=== PATIENT | female | born 1935 | race Caucasian/White ===

== ENCOUNTER 2021-08-01 01:37 | Inpatient (IN) | payer OTHER ==
[~2021-08-01] VITALS: Ht 154.9 cm; Wt 49.4 kg
[2021-08-01 01:44] VITALS: BP 197/113
--- NOTE | 2021-08-01 01:44 | NUR ---
Patient placed on bed 2.
--- NOTE | 2021-08-01 01:45 | NUR ---
Dr. Matson at bedside to exam patient.
[2021-08-01] MEDS ORDERED: ACETAMINOPHEN EXTRA STRENGTH 500 MG TAB PO ONE (01:50)
--- NOTE | 2021-08-01 01:59 | NUR ---
PATIENT TO XR VIA GURNEY
--- NOTE | 2021-08-01 01:59 | NUR ---
Patient taken to radiology dept via [place].
[2021-08-01] MEDS ORDERED: PRED15SY33 PO (02:14)
[2021-08-01] MEDS ORDERED: CLON1TAB PO (02:14)
[2021-08-01] MEDS ORDERED: ACET-6951 PO (02:14)
[2021-08-01] MEDS ORDERED: IBUP-1842 PO (02:14)
[2021-08-01] MEDS ORDERED: BISA-213 RC (02:14)
[2021-08-01] MEDS ORDERED: LORA-476 PO (02:14)
[2021-08-01] MEDS ORDERED: MECL-416 PO (02:14)
[2021-08-01] MEDS ORDERED: BENA20TA PO (02:14)
[2021-08-01] MEDS ORDERED: ATOR40TA PO (02:14)
--- NOTE | 2021-08-01 02:15 | NUR ---
Medication Reconciliation done.
--- NOTE | 2021-08-01 02:31 | NUR ---
Patient reported, pain left upper thigh, pain rate 11/25, Dr. Matson notified.
[2021-08-01] MEDS ORDERED: NACL 0.9% 1,000 ML IV ONE (02:35)
[2021-08-01] MEDS ORDERED: ONDANSETRON 4 MG/2 ML VIAL IVP ONE (02:35)
[2021-08-01] MEDS ORDERED: MORPHINE SULFATE 4 MG/ML SYR IVP ONE (02:35)
[2021-08-01] MEDS ORDERED: MORPHINE SULFATE 4 MG/ML SYR IVP PRN (02:45)
--- NOTE | 2021-08-01 02:50 | NUR ---
Order 2 mg of Morphine and wasted 2 mg of Morphine with AD Fregoso.
--- NOTE | 2021-08-01 02:55 | NUR ---
covid-19 swabs collected and sent to lab.
[2021-08-01 03:00] LABS: BASOPHILS % (AUTO) 0.5 % (0.0-2.0); EOSINOPHILS % (AUTO) 0.2 % (0.0-4.0); HEMATOCRIT 39.8 % (36-48); HEMOGLOBIN 13.2 g/dL (12.0-16.0); LYMPHOCYTES % (AUTO) 13.5 % (20.5-51.1); MEAN CORPUSCULAR HEMOGLOBIN 30 pg (27-31); MEAN CORPUSCULAR HGB CONC 33 g/dL (33-37); MEAN CORPUSCULAR VOLUME 91.6 fL (80-94); MONOCYTES # (AUTO) 0.4 K/uL (0.8-1.0); MONOCYTES % (AUTO) 5.3 % (1.7-9.3); NEUTROPHILS # (AUTO) 6.2 K/uL (1.8-7.7); NEUTROPHILS % (AUTO) 80.5 % (42.2-75.2); PLATELET COUNT (AUTO) 268 K/uL (140-450); RED BLOOD CELL COUNT(AUTO) 4.34 MIL/uL (4.20-5.40); RED CELL DISTRIBUTION WIDTH 15.1 % (11.6-13.7); WHITE BLOOD COUNT (AUTO) 7.7 K/uL (4.8-10.8)
[2021-08-01 03:34] LABS: PROTHROMBIN TIME 9.4 secs (10.8-13.4)
[2021-08-01] MEDS: NACL 0.9% 1,000 ML IV SCH ×2 (03:41→15:15)
[2021-08-01 03:44] LABS: ALBUMIN 3.4 g/dL (3.4-5.0); ASPARTATE AMINOTRANSFERASE 19 U/L (15-37); CARBON DIOXIDE 23.2 mmol/L (21-32); CREATININE 0.9 mg/dL (0.6-1.3); GLUCOSE 142 mg/dL (74-106); TOTAL BILIRUBIN 0.3 mg/dL (0.0-1.0); UREA NITROGEN, BLOOD 20 mg/dL (7-18)
[2021-08-01 03:47] LABS: ANION GAP 13.7 (8-16); CHLORIDE 105 mmol/L (98-107); POTASSIUM 3.9 mmol/L (3.5-5.1); SODIUM SERUM 138 mmol/L (136-145)
--- NOTE | 2021-08-01 04:00 | NUR ---
Patient will be admitted to care of Costa DELACRUZ. Admited to Med/Surg. Will go to room 123A. Belongings list completed. Report to Amina DUONG.
[2021-08-01 04:10] VITALS: BP 108/71
--- NOTE | 2021-08-01 04:10 | NUR ---
PATIENT ARRIVED TO FLOOR VIA GURNEY. PT TX TO BED WITH ASSISTANCE OF 2 NURSES PT TOLERATED WELL. PT IS AAOX4. RESPIRATIONS ARE EQUAL AND UNLABORED ON ROOM AIR. LUNG SOUNDS ARE CLEAR. ABD IS ROUND SOFT LBM YESTERDAY. IV ON LAC 20G WILL CONNECT TO IVF. SKIN IS WARM DRY AND INTACT. C/C S/P FALL PER PT, "I LEAN TO GET MY WALKER AND FELL DOWN." PT DENIES LOSS CONSCIOUS. DX L FEMUR FX. MRSA SWAB OBTAINED AND SENT TO LAB. ORIENTED PT TO ROOM, STAFF, CALL LIGHT. CAP REFILL < 3 SEC NO SWELLING NOTED. WIGGLED TOES. PT RATED PAIN 10/10 UNABLE TO COMPLETE ASSESSMENT. WILL MEDICATE. POC REVIEWED WITH PT. CALL LIGHT IS WITHIN REACH. WILL CONTINUE TO MONITOR.
--- NOTE | 2021-08-01 04:20 | NUR ---
C/C L LEG PAIN 10/10 PRN MORPHINE GIVEN. WILL CONTINUE TO MONITOR.
[2021-08-01] MEDS ORDERED: ACETAMINOPHEN 325 MG TAB PO PRN ×2 (05:45→06:50)
--- NOTE | 2021-08-01 06:00 | NUR ---
SPOKE WITH PATIENT'S SON LAURA UPDATE GIVEN. ALL QUESTIONS AND CONCERN WERE ANSWERED.
[2021-08-01] MEDS ORDERED: MAG SULF 2000 MG/WATER PREMIX 50 ML IV PRN (06:50)
[2021-08-01] MEDS ORDERED: DOCUSATE SODIUM 100 MG GELCAP PO PRN (06:50)
[2021-08-01] MEDS ORDERED: ONDANSETRON 4 MG/2 ML VIAL IVP PRN (06:50)
[2021-08-01] MEDS ORDERED: LORazepam 2 MG/ML VIAL IVP PRN (06:50)
[2021-08-01] MEDS ORDERED: ZOLPIDEM 10 MG TAB PO PRN (06:50)
[2021-08-01] MEDS ORDERED: POTASSIUM CHLORIDE 10 MEQ TABER PO PRN (06:50)
--- NOTE | 2021-08-01 06:50 | NUR ---
PATIENT HAS BEEN SCREENED AND CATEGORIZED LOW NUTRITION RISK. PATIENT WILL BE SEEN WITHIN 7 DAYS OF ADMISSION. 08/08/21 JAMES MCKEON MS, RDN
--- NOTE | 2021-08-01 07:30 | NUR ---
RECEIVED REPORT FROM VICE PRESIDENT NETWORK NURSE FOR CONTINUITY OF CARE. PT AWAKE IN BED. BREATHING SYMMETRICAL ON ROOM AIR. PT JUST GIVEN MORPHINE, PENDING CONSULT WITH ORTHO. LAC 20G RUNNING NS AT 80CC/HR. ALL SAFETY MEASURES IN PLACE.
[2021-08-01] MEDS: MORPHINE SULFATE 2 MG/ML SYR IVP PRN (07:33)
--- NOTE | 2021-08-01 07:34 | NUR ---
GAVE BEDSIDE REPORT TO DAY RN. PT ENDORSED IN STABLE CONDITION.
[2021-08-01 08:00] VITALS: BP 129/56
[2021-08-01] MEDS: prednisoLONE 15 MG/5 ML UDC PO SCH (09:54)
[2021-08-01] MEDS: BENAZEPRIL 20 MG TAB PO SCH (09:54)
--- NOTE | 2021-08-01 10:00 | NUR ---
SCHEDULED AM MEDICATIONS GIVEN ORDERED.
[2021-08-01] MEDS: traMADol 50 MG TAB PO SCH ×2 (10:40→21:03)
--- NOTE | 2021-08-01 13:45 | NUR ---
PT C/O PAIN LEFT LEG PAIN REFUSES MORPHINE, OFFERED TYLENOL INSTEAD. PT TAKEN TO RADIOLOGY FOR CT OF LEFT FEMUR WITHOUT CONTRAST
--- NOTE | 2021-08-01 14:05 | NUR ---
PT BACK FROM RADIOLOGY
[2021-08-01 16:00] VITALS: BP 97/40
--- NOTE | 2021-08-01 16:01 | NUR ---
RECEIVED CALL FROM LAB REGARDING TROPONIN LEVEL HIGH 55, LEFT MESSAGE TO DR SINGER AND DR MAYER, CONSULTING CARDIO
--- NOTE | 2021-08-01 16:06 | NUR ---
RECEIVED ORDER FROM DR MAYER TO REPEAT TROPONIN 3 HRS FROM LAST DRAWN.
--- NOTE | 2021-08-01 17:15 | NUR ---
PT GETTING ECHOCARDIOGRAM AT THIS TIME
--- NOTE | 2021-08-01 19:05 | NUR ---
ENDORSED PT TO DIAL PAINTER NURSE. NO CHANGE IN PT'S CONDITION
--- NOTE | 2021-08-01 19:35 | NUR ---
RECEIVED PT FROM AM NURSE FOR CONTINUITY OF CARE.PT IS STABLE.
[2021-08-01] MEDS: clonazePAM 0.5 MG TAB PO SCH (20:58)
[2021-08-01] MEDS: ATORVASTATIN 20 MG TAB PO SCH (21:03)
--- NOTE | 2021-08-01 21:30 | NUR ---
ALL MEDS GIVEN,TOLERATED WELL,NO DISTRESS NOTED.
[2021-08-02] VITALS: BP 106/55
--- NOTE | 2021-08-02 02:00 | NUR ---
PATIENT SLEEPING,BREATHING EVEN AND UNLABORED,NO DISTRESS NOTED
[2021-08-02] MEDS: NACL 0.9% 1,000 ML IV SCH ×2 (05:00→16:15)
--- NOTE | 2021-08-02 06:04 | NUR ---
CHANGED AND REPOSITIONED PT ,NO DISTRESS NOTED
[2021-08-02 06:20] LABS: BASOPHILS # (AUTO) 0.1 K/uL (0.00-0.22); BASOPHILS % (AUTO) 0.8 % (0.0-2.0); EOSINOPHILS # (AUTO) 0.1 K/uL (0-0.4); EOSINOPHILS % (AUTO) 1.7 % (0.0-4.0); HEMATOCRIT 28.4 % (36-48); HEMOGLOBIN 9.3 g/dL (12.0-16.0); LYMPHOCYTES % (AUTO) 27.4 % (20.5-51.1); MEAN CORPUSCULAR HEMOGLOBIN 31 pg (27-31); MEAN CORPUSCULAR HGB CONC 33 g/dL (33-37); MEAN CORPUSCULAR VOLUME 92.9 fL (80-94); MONOCYTES # (AUTO) 0.6 K/uL (0.8-1.0); MONOCYTES % (AUTO) 8.1 % (1.7-9.3); NEUTROPHILS # (AUTO) 4.5 K/uL (1.8-7.7); PLATELET COUNT (AUTO) 199 K/uL (140-450); RED BLOOD CELL COUNT(AUTO) 3.05 MIL/uL (4.20-5.40); RED CELL DISTRIBUTION WIDTH 14.9 % (11.6-13.7); WHITE BLOOD COUNT (AUTO) 7.2 K/uL (4.8-10.8)
[2021-08-02 06:46] LABS: ANION GAP 7.5 (8-16); CHLORIDE 109 mmol/L (98-107); CREATININE 0.8 mg/dL (0.6-1.3); GLUCOSE 86 mg/dL (74-106); POTASSIUM 4.5 mmol/L (3.5-5.1); SODIUM SERUM 140 mmol/L (136-145); UREA NITROGEN, BLOOD 15 mg/dL (7-18)
--- NOTE | 2021-08-02 07:20 | NUR ---
RECEIVED REPORT FROM ART SALES CONSULTANT NURSE FOR CONTINUITY OF CARE. PT AWAKE IN BED, BREATHING SYMMETRICAL ON ROOM AIR. NO C/O PAIN AT THIS TIME. LAC 20G WITH NS AT 80CC/HR. BED ON LOW POSITION. CALL LIGHT WITHIN REACH. ALL SAFETY MEASURES IN PLACE.
--- NOTE | 2021-08-02 07:36 | NUR ---
ENDORSED PT TO AM NURSE FOR CONTINUITY OF CARE. PY IS STABLE
[2021-08-02 08:00] VITALS: BP 121/52
--- NOTE | 2021-08-02 08:00 | NUR ---
PT C/O LLE PAIN, PT IS NPO AT THIS TIME DUE TO POSSIBLE SURGERY THIS AFTERNOON, PENDING CARDIAC CLEARANCE. PT REFUSES MORPHINE FOR PAIN MANAGEMENT.
[2021-08-02 08:17] LABS: PROTHROMBIN TIME 9.4 secs (10.8-13.4)
[2021-08-02] MEDS: traMADol 50 MG TAB PO SCH ×2 (09:00→20:59)
[2021-08-02] MEDS: prednisoLONE 15 MG/5 ML UDC PO SCH (09:00)
[2021-08-02] MEDS: BENAZEPRIL 20 MG TAB PO SCH (09:00)
--- NOTE | 2021-08-02 09:08 | NUR ---
PLACED PT ON 2L NC, PT SATING 88-91% ON ROOM AIR, NO SOB NOTED. DR SINGER AT STATION, MADE AWARE WITH ORDER FOR BREATHING TREATMENT
[2021-08-02] MEDS ORDERED: ALBUTEROL SULFATE/IPRATROPIU 3 ML SOL IH PRN (09:10)
--- NOTE | 2021-08-02 09:41 | NUR ---
AM PO MEDS NOT GIVEN, PT IS NPO AT THIS TIME, FOR POSSIBLE SURGERY TODAY LEFT FEMUR ORIF
--- NOTE | 2021-08-02 10:30 | NUR ---
RE-ASSESSED PT STILL DESATURATING ON ROOM AIR 88-91%, O2 2L IN PLACE. NO SOB NOTED. WILL CONTINUE TO MONITOR.
--- NOTE | 2021-08-02 12:08 | NUR ---
PT CLEARED BY DR MAYER FROM CARDIAC STANDPOINT FOR SURGERY, LAURA (SON) AND PT AWARE.
[2021-08-02] MEDS ORDERED: TRANEXAMIC ACID 1,000 MG in NACL 0.9% 50 ML IV ONE (12:30)
[2021-08-02] MEDS ORDERED: TRANEXAMIC ACID 1,000 MG/10 ML VIAL ONE ×2 (12:38→14:09)
--- NOTE | 2021-08-02 13:01 | NUR ---
PT TAKEN TO OR, IN STABLE CONDITION
[2021-08-02] MEDS ORDERED: BUPIVACAINE-MPF/EPI 0.25% 30 ML VIAL INJ ONE (13:11)
[2021-08-02] MEDS ORDERED: SEVOFLURANE 250 ML BTL INH ONE (13:17)
[2021-08-02] MEDS ORDERED: fentaNYL citrate 0.05 MG/ML VIAL ONE (13:20)
[2021-08-02] MEDS ORDERED: ROCURONIUM 50 MG/5 ML VIAL IV ONE ×3 (15:42→16:35)
[2021-08-02] MEDS ORDERED: VANCOMYCIN 1,000 MG VIAL ONE (16:27)
[2021-08-02] MEDS ORDERED: ceFAZolin 1,000 MG VIAL ONE ×2 (16:36)
[2021-08-02] MEDS ORDERED: PROPOFOL 200 MG/20 ML VIAL IV ONE (16:36)
--- NOTE | 2021-08-02 16:59 | NUR ---
PT STILL IN OR.
[2021-08-02] MEDS ORDERED: LABETALOL 100 MG/20 ML VIAL ONE (17:11)
[2021-08-02] MEDS ORDERED: ONDANSETRON 4 MG/2 ML VIAL ONE (17:13)
[2021-08-02] MEDS ORDERED: GLYCOPYRROLATE 0.2 MG/ML VIAL ONE ×4 (17:23)
[2021-08-02] MEDS ORDERED: NEOSTIGMINE 1:1000 10 MG/10 ML VIAL ONE (17:24)
[2021-08-02] MEDS ORDERED: HYDROmorphone 1 MG/ML AMP IVP PRN ×2 (17:55)
[2021-08-02] MEDS: LACTATED RINGERS 1,000 ML IV SCH (17:55)
--- NOTE | 2021-08-02 18:00 | NUR ---
PT BACK FROM OR, S/P LEFT FEMUR ORIF. PT AWAKE, STILL SLIGHTLY GROGGY. BREATHING SYMMETRICAL ON ROOM AIR. OG CATHETER IN PLACE DRAINING YELLOW URINE, OG WAS PLACED AT OR. WITH BANDAGE DRESSING ON LEFT LLE FROM THIGH TO BELOW KNEE. Addendum: 08/02/21 at 1824 by Estrella Pat Duggan RN [id number] [id number] PLACED PT ON 2L NC O2 SAT ON ROOM AIR 88% NO SOB NOTED
--- NOTE | 2021-08-02 19:19 | NUR ---
ENDORSED PT TO ROOM SERVICE SUPERVISOR NURSE. PT S/P LEFT FEMUR ORIF SURGERY
--- NOTE | 2021-08-02 19:30 | NUR ---
RECEIVED BEDSIDE REPORT FROM DAY SHIFT RN FOR CONTINUITY OF CARE. PT IS AWAKE IN BED. PT IS ON NC 2L SATING 96%. PT IS NOT IN ANY DISTRESS. BREATHING RHYTHMIC AND UNLABORED. PT HAS LEFT AC 20 GAUGE RUNNING NS 80 ML/HR. CALL LIGHT WITHIN REACH. ALL SAFETY MEASURES TAKEN. WILL CONTINUE TO MONITOR THE PT.
[2021-08-02] MEDS: MORPHINE SULFATE 2 MG/ML SYR IVP PRN (19:38)
[2021-08-02 20:00] VITALS: BP 122/52
[2021-08-02] MEDS: ATORVASTATIN 20 MG TAB PO SCH (21:00)
[2021-08-02] MEDS: clonazePAM 0.5 MG TAB PO SCH (21:00)
--- NOTE | 2021-08-02 21:05 | NUR ---
PT REFUSED LIPITOR. ALL OTHER DUE MEDS GIVEN. NO ADVERSE REACTION NOTED. NO COMPLAINS AT THIS TIME. WILL CONTINUE TO MONITOR THE PT.
--- NOTE | 2021-08-02 22:00 | NUR ---
PT KEPT PULLING ON HER FC SAYING TO CUT IT OFF. PT WAS EDUCATED ON THE REASON WHY SHE HAD THE FC. PT WAS UNAWARE SHE HAD SURGERY TODAY. PT WAS EDUCATED ON WHAT HAPPEN TO HER. ALSO, PT REMOVED NC AND REFUSES TO PUT IT BACK ON. SHE STATES THE DOCTOR SAID SHE DOESN'T NEED IT ANYMORE. PT IS SATING 90%. PT WAS EDUCATED ON THE PURPOSE OF NC AND O2 SATURATION.
[2021-08-03] MEDS ORDERED: ceFAZolin 1,000 MG VIAL ONE ×2 (00:20→05:17)
--- NOTE | 2021-08-03 00:38 | NUR ---
ABX GIVEN PER MD ORDER. NO ADVERSE REACTION NOTED. WILL CONTINUE TO MONITOR THE PT.
--- NOTE | 2021-08-03 02:52 | NUR ---
PT IS AWAKE IN BED. PT HAS NO COMPLAINS RIGHT NOW. NOT IN ANY ACUTE DISTRESS. BREATHING EVEN AND UNLABORED. IVF RUNNING PER MD ORDER. CALL LIGHT WITHIN REACH. ALL SAFETY MEASURES TAKEN. WILL CONTINUE TO MONITOR THE PT.
[2021-08-03] MEDS: LACTATED RINGERS 1,000 ML IV SCH (03:55)
[2021-08-03] MEDS: NACL 0.9% 1,000 ML IV SCH ×2 (04:48→17:29)
--- NOTE | 2021-08-03 05:40 | NUR ---
PT REMOVED DRESSING FROM HER LEFT LEG. PT REFUSES TO PUT NEW DRESSING ON OR TO COVER IT WITH ANYTHING. SHE STATES SHE TOOK IT OFF BECAUSE HER LEG IS SWELLING AND SHE IS FEELING PAIN. SHE DOES NOT WANT ANYTHING FOR PAIN. PT WAS EDUCATED ON THE IMPORTANCE OF KEEPING THE DRESSING OVER THE SURGICAL SITE. PT STILL REFUSES ANY INTERVENTIONS. SHE STATES SHE IS THE OLDER PERSON AND SHE KNOWS WHAT IS BEST FOR HER.
[2021-08-03 06:20] LABS: ANION GAP 11.8 (8-16); CARBON DIOXIDE 24.4 mmol/L (21-32); CHLORIDE 106 mmol/L (98-107); CREATININE 0.9 mg/dL (0.6-1.3); GLUCOSE 113 mg/dL (74-106); POTASSIUM 3.2 mmol/L (3.5-5.1); SODIUM SERUM 139 mmol/L (136-145); UREA NITROGEN, BLOOD 10 mg/dL (7-18)
[2021-08-03 06:22] LABS: BASOPHILS % (AUTO) 0.4 % (0.0-2.0); EOSINOPHILS % (AUTO) 0.1 % (0.0-4.0); HEMATOCRIT 24.7 % (36-48); HEMOGLOBIN 8.2 g/dL (12.0-16.0); LYMPHOCYTES # (AUTO) 1.1 K/uL (2.5-16.5); LYMPHOCYTES % (AUTO) 11.2 % (20.5-51.1); MEAN CORPUSCULAR HEMOGLOBIN 30 pg (27-31); MEAN CORPUSCULAR HGB CONC 33 g/dL (33-37); MONOCYTES # (AUTO) 0.9 K/uL (0.8-1.0); MONOCYTES % (AUTO) 9.6 % (1.7-9.3); NEUTROPHILS # (AUTO) 7.5 K/uL (1.8-7.7); NEUTROPHILS % (AUTO) 78.7 % (42.2-75.2); PLATELET COUNT (AUTO) 195 K/uL (140-450); RED BLOOD CELL COUNT(AUTO) 2.68 MIL/uL (4.20-5.40); RED CELL DISTRIBUTION WIDTH 14.9 % (11.6-13.7); WHITE BLOOD COUNT (AUTO) 9.5 K/uL (4.8-10.8)
--- NOTE | 2021-08-03 07:09 | NUR ---
ENDORSED PT TO DAY SHIFT RN FOR CONTINUITY OF CARE. PT IS STABLE.
--- NOTE | 2021-08-03 07:10 | NUR ---
RECEIVED ENDORSEMENT FROM DELIVERY PROFESSIONAL NURSE FOR CONTINUITY OF CARE. PATIENT AWAKE VERBALLY RESPONSIVE. DENIES PAIN ON STABLE CONDITION NO DISTRESS NOTED. REFUSED TO PUT NASAL CANULA.
[2021-08-03] MEDS ORDERED: MORPHINE SULFATE 2 MG/ML SYR IVP PRN (07:20)
[2021-08-03 08:00] VITALS: BP 120/45
[2021-08-03] MEDS: prednisoLONE 15 MG/5 ML UDC PO SCH (08:58)
[2021-08-03] MEDS: BENAZEPRIL 20 MG TAB PO SCH (08:59)
[2021-08-03] MEDS ORDERED: ENOXAPARIN 40 MG/0.4 ML SYR SUBQ SCH (09:00)
[2021-08-03] MEDS: traMADol 50 MG TAB PO SCH (09:00)
[2021-08-03] MEDS ORDERED: ERGOCALCIFEROL 50,000 IU SGL PO SCH (09:00)
--- NOTE | 2021-08-03 09:46 | NUR ---
GIVEN ALL DUE MEDICATION TOLERATED WELL. RN GAVE MAGNESIUM FOR LEVEL OF 1.6. PATIENT WITH CONFUSION KEEP ON ASKING FOR THE PHONE THAT'S ON HER SIDE. PATIENT SPOKE TO SON LAURA.
[2021-08-03] MEDS ORDERED: ACET-5634 PO (11:05)
[2021-08-03] MEDS ORDERED: APIX2.5 PO (11:05)
--- NOTE | 2021-08-03 11:30 | NUR ---
PATIENT ON BED RESTING WITH CALL LIGHT WITH IN EASY REACH. REFUSED TO PUT BRACE ON. PATIENT SURGICAL SITE PUT DRESSING ON AND EXPLAINED NEED TO KEEP IT TO PREVENT FROM ANY INFECTION. NO BLEEDING NOTED BUT SLIGHT REDNESS.
--- NOTE | 2021-08-03 12:30 | NUR ---
PATIENT ATE LUNCH TOLERATED WELL. PATIENT HAS VISITOR. CALL LIGHT WITH IN EASY REACH.
--- NOTE | 2021-08-03 12:45 | NUR ---
P.T. NOTES P.T. EVAL COMPLETED; REFER TO EVAL FOR DETAILS.
--- NOTE | 2021-08-03 14:44 | NUR ---
DC PLANNING LATE ENTRY CALL WAS ABOUT 10:30AM CARMEN FAXED PATIENT'S CLINICALS AT AND SPOKE TO MICHELLE FROM [facility] AT . DURING THE CONVERSATION WITH MICHELLE SHE PROVIDED WITH PATIENT'S SNF AUTHORIZATION NUMBER # [id number] AND STATED THAT SHE COULD NOT PROVIDE SW WITH THE TRANSPORT AUTHORIZATION NUMBER BECAUSE IT HAD TO BE PROVIDED BY [facility]. CARMEN ENDED THE CALL AND THEN CONTACTED [facility] WITH [facility] AFTER SPEAKING WITH CM CORONER TRANSPORT TECHNICIAN AT STATED THAT THESE BUILDING CODE ADMINISTRATOR WILL BE TRANSFER TO THE CORRECT DEPARTMENT AND TRANSFER TO ANOTHER CONTACT NUMBER . DURING THAT CONVERSATION WITH CM FROM [facility] STATED THAT SHE CAN NOT PROVIDE WITH AUTHORIZATION FOR TRANSPORT AND EXPLAINED THAT PATIENT DID NOT HAVE THAT BENEFIT FROM HER INSURANCE CARMEN ENDED THE CALL. SW CALL [facility] TO CONFIRMED THAT PATIENT'S CLINICAL PACKET WAS RECEIVED; CARMEN SPOKE TO SANGEETA FROM ADMISSIONS WHO CONFIRMED THAT SHE HAS RECEIVED PATIENT'S CLINICAL PACKET. SANGEETA STATED THAT PATIENT CAN RETURNED TO THEIR FACILITY AND ASKED FOR THE SKILL AUTHORIZATION # [id number] THEN PROVIDED WITH PATIENT ROOM [address] ARBOLEDA AND REQUESTED FOR PATIENT TO BE AT THEIR FACILITY AFTER 5:00 PM TODAY. CRAMEN THANKED HER FOR THE INFORMATION AND ENDED THE CALL. CARMEN CALL [facility] AT SPOKE TO NAI WHO COORDINATED PATIENT'S TRANSPORTATION COMPTROLLER FROM [facility] TO PATIENT'S RETURNING FACILITY [facility] AT [address] [facility] [address] [address]. PER NAI AT TRANSPORT PATIENT WILL BE COMPTROLLER FROM [place] AT ABOUT 6:30PM CARMEN THANKED HER FOR THE INFORMATION AND PROVIDED HER WITH TELE UNIT NUMBER AND ENDED THE CALL. CARMEN ENDORSE INFORMATION TO AD HITCHCOCK
--- NOTE | 2021-08-03 15:00 | NUR ---
PATIENT ASLEEP ON BED RESTING WITH CALL LIGHT WITH IN EASY REACH.
[2021-08-03 16:00] VITALS: BP 115/55
--- NOTE | 2021-08-03 16:05 | NUR ---
CALLED KUMAR JIANG TO GIVE REPORT REGARDING THE PT. APRIL PICKED-UP THE PHONE AND WAS TRANSFERRED TO [facility] BUT FORWARDED BACK TO APRIL. APRIL TOLD ME THAT OBED WAS STILL ON PHONE ON THE OTHER LINE WITH SOMEBODY AND WAS ADVISED TO CALL AT LATER TIME.
--- NOTE | 2021-08-03 18:00 | NUR ---
CHANGE PATIENT CLOTHING AND KEEP CLEAN AND COMFORTABLE WITH 2 ASSIST TOLERATED WELL.
--- NOTE | 2021-08-03 19:00 | NUR ---
PATIENT ALERT ABLE TO MAKE NEEDS KNOWN RESPIRATION EVEN AND NOT LABORED. ASSISTANT ACTIVITIES DIRECTOR BY TRANSPORTATION VIA GURNEY. REMOVED IV SITE WITH CATHETER IN TACT. NAME BAND REMOVE. ALL BELONGING TAKEN AND DISCHARGE POCKET GIVE.
--- NOTE | 2021-08-03 19:05 | NUR ---
GAVE REPORT TO OBED [facility].
[2021-08-03] MEDS ORDERED: cephALEXin 500 MG CAP PO SCH (21:00)
== END 2021-08-03 19:13 | DRG 481 ==
LOC: MED 01:37 → MTU 02:52
PROVIDERS: ADMIT General Practice; ATTEND General Practice
PROC: 0QSC06Z Reposition Left Lower Femur with Intramedullary Internal Fixation Device, Open Approach (ICD-10-PCS; principal; 2021-08-02 13:00)
DX: S72.492A Other fracture of lower end of left femur, initial encounter for closed fracture (principal); M97.12XA Periprosthetic fracture around internal prosthetic left knee joint, initial encounter; E78.5 Hyperlipidemia, unspecified; I10 Essential (primary) hypertension; F41.9 Anxiety disorder, unspecified; Z66 Do not resuscitate; M16.0 Bilateral primary osteoarthritis of hip; Z96.652 Presence of left artificial knee joint; Z20.822 Contact with and (suspected) exposure to COVID-19; M17.11 Unilateral primary osteoarthritis, right knee; W18.39XA Other fall on same level, initial encounter; Y93.89 Activity, other specified; Y92.121 Bathroom in nursing home as the place of occurrence of the external cause; Y99.8 Other external cause status; Z88.6 Allergy status to analgesic agent; Z79.899 Other long term (current) drug therapy
CPT/HCPCS: 36415; 71045; 73502; 73562; 73700; 77003; 80048; 80053; 83036; 83735; 83880; 84484; 85025; 85610; 85730; 86886; 86900; 86901; 87081; 93005; 94010; 96361; 96374; 96375; 97112; 97163-GP; 99285; J0690; J1644; J1650; J2270; J2405; J2704; J2710; J3010; J3370; J3475; J3490; J7030; J7060; J7510; Q0092

== ENCOUNTER 2021-08-06 11:27 | Observation (INO) | payer OTHER ==
[~2021-08-06] VITALS: Ht 160 cm; Wt 65.8 kg
[~2021-08-06 11:27] MED LIST: ACET-5634 PO; ACET-6951 PO; APIX2.5 PO; ATOR40TA PO; BENA20TA PO; BISA-213 RC; CLON1TAB PO; IBUP-1842 PO; LORA-476 PO; MECL-416 PO; PRED15SY33 PO
--- NOTE | 2021-08-06 11:27 | NUR ---
PT JD AND [facility]
[2021-08-06 11:30] VITALS: BP 116/54
--- NOTE | 2021-08-06 11:30 | NUR ---
PT PLACED IN HOSPITAL GOWN, REPOSITIONED FOR COMFORT, AND COVERED WITH PATIENTS OWN BLANKET
[2021-08-06] MEDS ORDERED: MORPHINE SULFATE 4 MG/ML SYR IVP ONE (11:35)
[2021-08-06] MEDS ORDERED: ZINC50TA76 PO (11:42)
[2021-08-06] MEDS ORDERED: MIRABULK PO (11:42)
[2021-08-06] MEDS ORDERED: DOCU-299 PO (11:42)
[2021-08-06] MEDS ORDERED: MULT-2253 PO (11:42)
[2021-08-06] MEDS ORDERED: ASCO500T95 PO (11:42)
[2021-08-06] MEDS ORDERED: MV-M1TAB9 PO (11:42)
--- NOTE | 2021-08-06 11:42 | NUR ---
MED REC COMPLETED FOR PATIENT
--- NOTE | 2021-08-06 11:59 | NUR ---
BACK SKIN INSPECTED AND NO SIGNS OF WOUNDS NOTED
--- NOTE | 2021-08-06 12:17 | NUR ---
85Y FEMALE BIBA FROM [facility] DUE TO L HIP PAIN S/P SURGERY FOR L FEMUR FX DONE 08/02/21. L LEG IN KNEE BRACE AND WRAPPED AT THIS TIME. PT STATED PAIN IS CURRENTLY 9/10 IN HER L HIP/KNEE REGION. PT IS CURRENTLY A&OX3. SKIN DRY AND INTACT. SOME REDNESS NOTED ON PATIENT SACRAL REGION, BUT NO OPEN WOUNDS NOTED. PMH: HTN, ANXIETY ALLERGIES: ASPIRIN
--- NOTE | 2021-08-06 12:30 | NUR ---
XRAY AT BEDSIDE
--- NOTE | 2021-08-06 12:30 | NUR ---
BHAVYA ZIEGLER COLLECTED AND HANDED TO MARGIE MCKINLEY
[2021-08-06 12:38] LABS: BASOPHILS # (AUTO) 0.1 K/uL (0.00-0.22); BASOPHILS % (AUTO) 0.9 % (0.0-2.0); EOSINOPHILS # (AUTO) 0.2 K/uL (0-0.4); EOSINOPHILS % (AUTO) 2.3 % (0.0-4.0); HEMATOCRIT 23.2 % (36-48); HEMOGLOBIN 7.6 g/dL (12.0-16.0); LYMPHOCYTES # (AUTO) 1.4 K/uL (2.5-16.5); LYMPHOCYTES % (AUTO) 16.4 % (20.5-51.1); MEAN CORPUSCULAR HEMOGLOBIN 30 pg (27-31); MEAN CORPUSCULAR HGB CONC 33 g/dL (33-37); MEAN CORPUSCULAR VOLUME 91.8 fL (80-94); MONOCYTES # (AUTO) 0.6 K/uL (0.8-1.0); MONOCYTES % (AUTO) 7.5 % (1.7-9.3); NEUTROPHILS # (AUTO) 6.2 K/uL (1.8-7.7); NEUTROPHILS % (AUTO) 72.9 % (42.2-75.2); PLATELET COUNT (AUTO) 299 K/uL (140-450); RED BLOOD CELL COUNT(AUTO) 2.53 MIL/uL (4.20-5.40); RED CELL DISTRIBUTION WIDTH 14.6 % (11.6-13.7); WHITE BLOOD COUNT (AUTO) 8.5 K/uL (4.8-10.8)
[2021-08-06 13:04] LABS: ALBUMIN 2.2 g/dL (3.4-5.0); ANION GAP 9.6 (8-16); ASPARTATE AMINOTRANSFERASE 29 U/L (15-37); CARBON DIOXIDE 26.7 mmol/L (21-32); CHLORIDE 107 mmol/L (98-107); CREATININE 0.8 mg/dL (0.6-1.3); GLUCOSE 111 mg/dL (74-106); POTASSIUM 3.3 mmol/L (3.5-5.1); SODIUM SERUM 140 mmol/L (136-145); TOTAL BILIRUBIN 0.6 mg/dL (0.0-1.0); UREA NITROGEN, BLOOD 16 mg/dL (7-18)
--- NOTE | 2021-08-06 13:27 | NUR ---
DR. MCDANIELS BEDSIDE EVALUATING PT
[2021-08-06] MEDS ORDERED: HYDROcodone/APAP 5/325 MG 1 TAB TAB PO PRN ×2 (14:20→14:30)
[2021-08-06] MEDS: NACL 0.9% 1,000 ML IV SCH (14:20)
[2021-08-06] MEDS ORDERED: MORPHINE SULFATE 2 MG/ML SYR IVP PRN (14:20)
[2021-08-06] MEDS ORDERED: LORazepam 2 MG/ML VIAL IVP PRN (14:20)
[2021-08-06] MEDS ORDERED: ONDANSETRON 4 MG/2 ML VIAL IVP PRN ×2 (14:20→14:30)
--- NOTE | 2021-08-06 14:22 | NUR ---
PT ADMITTED UNDER DR. BIRMINGHAM TELE.
[2021-08-06] MEDS ORDERED: POTASSIUM CHLORIDE 10 MEQ TABER PO ONE (14:25)
--- NOTE | 2021-08-06 14:28 | NUR ---
Patient appears to be resting comfortably in bed. Vital Signs within normal limits. Respirations even and unlabored.
--- NOTE | 2021-08-06 14:56 | NUR ---
Patient will be admitted to care of DR. BIRMINGHAM. Admited to MED SURG. Will go to room 123B. Belongings list completed. Report to AD HUERTAS. PT TAKEN VIA CHRISTIANNE WITH AD EDMONDS
[2021-08-06] MEDS ORDERED: POTASSIUM CHLORIDE 10 MEQ TABER PO SCH (15:00)
[2021-08-06 16:49] VITALS: BP 128/68
[2021-08-06 20:00] VITALS: BP 120/72
--- NOTE | 2021-08-06 21:00 | NUR ---
RECEIVED REPORT FROM AD VILLAREAL AT BEDSIDE FOR CONTINUITY OF CARE, PT LYING IN BED HOB UP 35% SHE IS AOX3 ON 3 LITERS VIA N/C AND MOSTLY BRITISH SPEAKING. PT C/O OF CONSTIPATION AND WAS GIVEN SOME PRUNE JUICE. PT ASSISTED ON BED BAN. SHE ALSO HAS C/O OF MODERATE PAIN IN HER LEFT LEG BUT WAS CONCERNED DUE TO CONSTIPATION. PT EDUCATED REGARDING PAIN MEDICATION AND ITS LINK TO CONSTIPATION VIA A HAND BOX FOLDER, PT VERBALIZED UNDERSTANDING; SHE REQUESTED TRAMADOL WHICH SHE TAKES AT HOME, PT SAID SHE DIDN'T LIKE HOW NORCO OR MORPHINE MADE HER FEEL. WILL SPEAK TO MD REGARDING PT REQUEST FOR ANOTHER PAIN MEDICATION.
--- NOTE | 2021-08-06 22:38 | NUR ---
RECEIVED NEW ORDER FOR TRAMADOL 50MG PRN BID FOR MODERATE PAIN. PT IS SLEEPING AT THIS TIME, WILL MONITOR FOR ANY C/O OF PAIN AND OTHER NEEDS. ALL FALLS PRECAUTIONS IN PLACE.
[2021-08-06] MEDS: traMADol 50 MG TAB PO PRN (23:47)
--- NOTE | 2021-08-06 23:59 | NUR ---
PT AWAKE AND ASKING FOR A PAIN PILL FOR MODERATE PAIN, SHE WAS GIVEN 1 TAB OF TRAMADOL 50 MG FOR MODERATE PAIN. PT WAS ALSO REPOSITIONED IN BED. ALL FALLS PRECAUTIONS IN PLACE. WILL MONITOR FOR PAIN RELIEF.
[2021-08-07] MEDS: NACL 0.9% 1,000 ML IV SCH ×3 (03:50→16:28)
[2021-08-07 04:00] VITALS: BP 114/52
--- NOTE | 2021-08-07 04:00 | NUR ---
REPLACED NEW BAG OF NORMAL SALINE. PT HAS NO S/S OF PAIN OR DISTRESS. PT REPOSITIONED IN BED. ALL ORDERED PRECAUTIONS IN PLACE.
[2021-08-07 05:13] LABS: BASOPHILS # (AUTO) 0.1 K/uL (0.00-0.22); BASOPHILS % (AUTO) 0.7 % (0.0-2.0); EOSINOPHILS # (AUTO) 0.2 K/uL (0-0.4); EOSINOPHILS % (AUTO) 2.3 % (0.0-4.0); HEMATOCRIT 21.9 % (36-48); HEMOGLOBIN 7.1 g/dL (12.0-16.0); LYMPHOCYTES # (AUTO) 2.2 K/uL (2.5-16.5); LYMPHOCYTES % (AUTO) 29.4 % (20.5-51.1); MEAN CORPUSCULAR HEMOGLOBIN 30 pg (27-31); MEAN CORPUSCULAR HGB CONC 33 g/dL (33-37); MONOCYTES # (AUTO) 0.6 K/uL (0.8-1.0); MONOCYTES % (AUTO) 8.4 % (1.7-9.3); NEUTROPHILS # (AUTO) 4.4 K/uL (1.8-7.7); NEUTROPHILS % (AUTO) 59.2 % (42.2-75.2); PLATELET COUNT (AUTO) 280 K/uL (140-450); RED BLOOD CELL COUNT(AUTO) 2.38 MIL/uL (4.20-5.40); RED CELL DISTRIBUTION WIDTH 14.6 % (11.6-13.7); WHITE BLOOD COUNT (AUTO) 7.3 K/uL (4.8-10.8)
[2021-08-07 05:42] LABS: ALBUMIN 2.1 g/dL (3.4-5.0); ANION GAP 8.1 (8-16); ASPARTATE AMINOTRANSFERASE 24 U/L (15-37); CARBON DIOXIDE 27.9 mmol/L (21-32); CHLORIDE 108 mmol/L (98-107); CREATININE 0.7 mg/dL (0.6-1.3); GLUCOSE 86 mg/dL (74-106); MAGNESIUM 2.1 mg/dL (1.8-2.4); SODIUM SERUM 140 mmol/L (136-145); TOTAL BILIRUBIN 0.6 mg/dL (0.0-1.0); UREA NITROGEN, BLOOD 14 mg/dL (7-18)
--- NOTE | 2021-08-07 07:30 | NUR ---
RECEIVED REPORT FROM LIBRARIAN HEAD NURSE. PT STABLE. 3L NC, CALL LIGHT IN REACH. ALL SAFETY MEASURES IN PLACE
[2021-08-07 08:00] VITALS: BP 146/52
--- NOTE | 2021-08-07 08:21 | NUR ---
PATIENT HAS BEEN SCREENED AND CATEGORIZED LOW NUTRITION RISK. PATIENT WILL BE SEEN WITHIN 7 DAYS OF ADMISSION. 08/13/[address] Addendum: 08/07/21 at [address] RECEIVED REFERRAL ON 08/07/21 NOT APPLICABLE
--- NOTE | 2021-08-07 08:30 | NUR ---
DRY HOUSE WHEELER NOTIFIED NURSE THAT PT REMOVED NC. PT VITALS TAKEN ON RA, SATURATING AT 94%. O2 PLACED BACK ON PT AT 3L NC. WILL TITRATE
[2021-08-07] MEDS ORDERED: ENOXAPARIN 40 MG/0.4 ML SYR SUBQ SCH (09:00)
[2021-08-07] MEDS: traMADol 50 MG TAB PO PRN ×2 (09:20→23:15)
[2021-08-07] MEDS: ENOXAPARIN 40 MG/0.4 ML SYR SUBQ SCH (09:21)
--- NOTE | 2021-08-07 09:50 | NUR ---
WOUND CARE EVALUATION NOTE: SKIN ASSESSMENT DONE TO THIS 85 Y/O PT. ADMITTED WITH INCREASING LEFT KNEE AND HIP PAIN. PT HAD FEMUR SURGERY LAST WEEK. LEFT KNEE, LATERAL THIGH, HIP SURGICAL WOUNDS, MULTIPLE SITES WITH SUSHILA IN PLACE AND SECURED, WOUND SITES DRY AND CLEAN, DRESSING DCI. PT. ADMITTED WITH ELHAM SCALE AT MODERATE TO HIGH RISK. PT ADMITTED WITH MOISTURE ASSOCIATED DERMATITIS TO SACRAL/BUTTOCKS, SKIN MOIST, BLANCHABLE REDNESS. PT. ON BEDPAN, PER PT. NO BM FOR 3 DAYS HAVING HARD TIME TO PASS STOOL. WOUND CARE POC DISCUSSED WITH PT. AND PRIMARY RN. ALSO, PER PRIMARY RN WILL REQUEST LAXATIVE FROM DOCTOR. RECOMMENDATIONS: -X RAY TO LEFT LEG -PLEASE KEEP LEFT KNEE, HIP MULTIPLE SITES SUSHILA DRY AND CLEAN COVER WITH DRY DRESSING QD AND PRN IF SOILING -LEFT KNEE BRACE RELEASE FOR 10 MINUTES AND REAPPLY, CHECK CALF SKIN AND CIRCULATION FOR LLE/FOOT Q12H -APPLY HYDRAGUARD TO SACRALCOCCYX BID AND PRN, OFFLOAD SACRAL AND HEELS -POSITIONING: TURN AND REPOSITION PATIENT Q 2H OR SOONER USE PILLOWS TO KEEP BONY PROMINENCES FROM DIRECT CONTACT WITH SURFACES USE REPOSITIONING WEDGES TO PROVIDE 30-DEGREE ANGLE FOR SIDE LYING POSITIONS OFFLOADING OR FOAM DRESSING TO ALL TUBING TO PREVENT MEDICAL DEVICES RELATED PRESSURE INJURY -RE-EVALUATING AND MANAGING INCONTINENCE MONITOR SKIN CONDITION DURING POSITION CHANGE DO NOT MASSAGE REDNESS, BONY PROMINENCES FREQUENT IKER-CARE AND PROVIDE BARRIER CREAMS PRN IF SOILING MOISTURE CONTROL BY OFFER BED RYAN/URINAL /ABSORBENT PAD TO WICK AND HOLD MOISTURE KEEP SKIN DRY AND PROTECT FROM FRICTION -MANAGE FRICTION/SHEAR/MOBILITY KEEP HOB AT THE LOWEST LEVEL OF ELEVATION NO MORE THAN 30 DEGREE UNLESS OTHERWISE CONTRAINDICATED USE LIFT SHEET OR TRANSFER DEVICE TO MOVE PATIENT AND PREVENT LATERAL SHEER. PROTECT ELBOWS BONY PROMINENCES WITH SKIN BERRIES OR FOAM DRESSING IF EXPOSED TO FRICTION OFFLOAD BILATERAL HEELS BY PLACING PILLOWS UNDER CALVES AT ALL TIMES, UNLESS OTHERWISE CONTRAINDICATED -PRESSURE REDISTRIBUTION SURFACE THERAPY LIBERTAD ISOFLEX GEL MATTRESS -NUTRITION: PLEASE FOLLOW RD RECOMMENDATIONS AND OFFER NUTRITION SUPPLEMENTS IF ORDERED. PLEASE CONTACT WOUND CARE NURSE FOR ANY QUESTION AND CHANGE OF WOUND CONDITION.
--- NOTE | 2021-08-07 10:00 | NUR ---
PT COMPLAINED OF CONSTIPATION. MD INFORMED, NO PRN IN EMAR. NEW ORDER RECEIVED FOR STOOL SOFTENER. WILL MEDICATE WHEN ACTIVE
[2021-08-07] MEDS ORDERED: DOCUSATE SODIUM 100 MG GELCAP PO PRN (10:25)
--- NOTE | 2021-08-07 10:43 | NUR ---
O2 TITRATED TO 2L NC. PT TOLERATING WELL. NO S/S OF DISTRESS. CALL LIGHT IN REACH. ALL SAFETY MEASURES IN PLACE
--- NOTE | 2021-08-07 12:03 | NUR ---
DC PLANNING: THE PATIENT WAS JD FROM [facility] WITH C/O LEFT HIP PAIN 12/26. S/P OPEN REPAIR ON LEFT FEMUR FX WITH INTRAMEDULLARY IMPLANT ON 08/02. GIVEN MORPHINE 4MG IV IN ED, HR 101. KARIME SPOKE WITH CHAUNCEY FROM [facility], ATTENDING MD AT [facility] DIRECTED THE FACILITY TO SEND PATIENT TO ED. CHAUNCEY STATES THAT THE PATIENT HAS BEEN TAKING OFF HER IMMOBILIZER AND HER SON AND DAUGHTER STATE THAT THE PATIENT HAS BEEN SCREAMING IN PAIN. KARIME SPOKE WITH THE PATIENTS SON LAURA BY PHONE, THE PATIENT IS CURRENTLY ON BEDREST, POSSIBLY FOR THE NEXT 2 MONTHS AND IS CURRENTLY TOTAL CARE. HE STATES THAT SHE IS NORMALLY ALERT AND NOT CONFUSED BUT THAT PAIN MEDICATION CAN MAKE HER HALLUCINATE ESPECIALLY MORPHINE. FAMILY DOES WANT THE PATIENT TO RETURN TO [facility] WHEN STABLE, KARIME WILL FOLLOW FOR NEEDS. Addendum: 08/07/21 at 1208 by Caren Mireles CM Amended: Links added. Addendum: 08/07/21 at 1412 by Caren Mireles CM DC PLANNING: KARIME SPOKE WITH DR BIRMINGHAM, HE WILL ORDER A HIP XRAY AND AMMEND HER PAIN MEDICATIONS AT THE [facility]. CM LEFT A MESSAGE FOR KARIME DA SILVA AT [facility] ([phone]) ASKING FOR AUTH FOR CONTINUED SKILLED SERVICES IN CASE PATIENT DC'S BACK TO FACILITY TODAY OR TOMORROW. NO RESPONSE YET, KARIME WILL FOLLOW. Addendum: 08/07/21 at 1549 by Caren Mireles CM DC PLANNING: CM RECEIVED VM FROM KARIME AT [facility] ([phone]), RETURNED CALL AND LEFT VM ASKING FOR AUTH FOR FACILITY. TRANSPORT WILL NEED TO BE PROVIDED BY [facility] ([phone]) PATIENT DOES NOT HAVE TRANSPORTATION BENEFIT. KARIME WILL FOLLOW. Addendum: 08/10/21 at 1039 by Pooja Duke RN DC PLANNING: FAXED ALL PAPERWORK AND CALLED KUMAR DAY WITH [facility], STATED PATIENT CAN GO TO ROOM 3A. ARRANGED TRANSPORT WITH [facility] UPTIME 6:30 PM NOTIFIED ALVIN CAREY CM TO FOLLOW
[2021-08-07] MEDS: ACETAMINOPHEN 325 MG TAB PO PRN ×2 (15:25→20:53)
--- NOTE | 2021-08-07 15:30 | NUR ---
DID NOT CHANGE IV FLUIDS, IV FLUIDS IS STILL INFUSING. WILL CHANGE AFTER THE IV BAG IS EMPTY.
--- NOTE | 2021-08-07 15:30 | NUR ---
PT COMPLAINED OF LEFT HIP AND KNEE PAIN. TYLENOL MED GIVEN PER DR'S ORDER.
[2021-08-07 16:00] VITALS: BP 137/62
--- NOTE | 2021-08-07 16:30 | NUR ---
IV 0.9% NACL FLUIDS CHANGED.
--- NOTE | 2021-08-07 19:30 | NUR ---
GAVE REPORT TO HEATING AND BLENDING SUPERVISOR NURSE, PT IS STABLE. DISCUSSED PLAN OF CARE.
--- NOTE | 2021-08-07 19:35 | NUR ---
RECEIVED BEDSIDE REPORT FROM DAY SHIFT RN FOR CONTINUITY OF CARE. PT IS AWAKE. PT IS AAOX3-4. PT IS ON 2L NC SATING 97%. PT HAS RIGHT HAND 22 GAUGE WITH NS 80 ML/HR. PT HAS DRESSING ON LEFT LEG WITH BRACE OVER IT. PT IS NOT IN ANY DISTRESS AND HAS NO COMPLAINS. BREATHING EVEN AND UNLABORED. CALL LIGHT WITHIN REACH. ALL SAFETY MEASURES TAKEN. WILL CONTINUE TO MONITOR THE PT.
[2021-08-07 20:00] VITALS: BP 117/90
--- NOTE | 2021-08-07 21:00 | NUR ---
PT COMPLAINING OF LEFT AND HIP PAIN. PT WAS GIVEN TYLENOL REQUESTED. NO FURTHER COMPLAINS FROM THE PT. WILL CONTINUE TO MONITOR THE PT.
--- NOTE | 2021-08-07 23:09 | NUR ---
PT SON NATALIA CALLED LETTING ME KNOW WHAT THE PT WAS SAYING TO HIM. PT WAS COMPLAINING OF WANTING TO BE CHANGED AND ALSO COMPLAINING OF PAIN. PT WAS EDUCATED TO CALL THE NURSE FOR HELP ON THE CALL LIGHT SYSTEM. PT VERBALIZE UNDERSTANDING. WILL CHANGE PT AND GIVE PAIN MEDICATION REQUESTED. Addendum: 08/07/21 at 5714 by Ramana Mandujano RN ALSO PT AND SON BOTH WANTED TO ORDER UA. WILL CONTACT
[2021-08-08] MEDS: MORPHINE SULFATE 2 MG/ML SYR IVP PRN ×2 (00:48→05:52)
[2021-08-08 01:41] LABS: APPEARANCE,URINE SL CLOUDY (CLEAR); BILIRUBIN,URINE NEGATIVE (NEGATIVE); BLOOD, URINE 3+ (NEGATIVE); LEUKOCYTE ESTERASE ,URINE 2+ (NEGATIVE); NITRITE, URINE POSITIVE (NEGATIVE); UGLUCOSE NEGATIVE (NEGATIVE)
[2021-08-08 01:44] LABS: COLOR,URINE YELLOW (YELLOW)
[2021-08-08 02:02] LABS: CALCIUM OXALATE CRYSTALS,UR 0-10 /HPF (None Seen)
--- NOTE | 2021-08-08 02:47 | NUR ---
PT IS SLEEPING COMFORTABLY IN BED. PT IS NOT IN ANY DISTRESS. BREATHING EVEN AND UNLABORED. IVF RUNNING PER MD ORDER. CALL LIGHT WITHIN REACH. ALL SAFETY MEASURES TAKEN. WILL CONTINUE TO MONITOR THE PT.
[2021-08-08 04:00] VITALS: BP 150/58
[2021-08-08] MEDS: ACETAMINOPHEN 325 MG TAB PO PRN (04:06)
--- NOTE | 2021-08-08 04:10 | NUR ---
PT IS COMPLAINING OF PELVIC PAIN. TYLENOL WAS GIVEN REQUESTED FROM THE PT. NO FURTHER COMPLAINS FROM THE PT. ALL SAFETY MEASURES TAKEN. WILL CONTINUE TO MONITOR THE PT.
[2021-08-08] MEDS: NACL 0.9% 1,000 ML IV SCH ×2 (06:30→18:53)
--- NOTE | 2021-08-08 07:09 | NUR ---
ENDORSED PT TO DAY SHIFT RN FOR CONTINUITY OF CARE. PT IS STABLE.
--- NOTE | 2021-08-08 07:30 | NUR ---
RECEIVED REPORT FROM MANAGER DATA WAREHOUSE NURSE. PT IS AWAKE. ON 2L O2 NC, WITH BREATHING UNLABORED. PT IS BED BOUND, NOT IN DISTRESS AT THIS TIME. IV SITE ON RIGHT HAND, 22G. WILL CONTINUE TO MONITOR.
[2021-08-08 08:00] VITALS: BP 156/60
--- NOTE | 2021-08-08 08:00 | NUR ---
PT COMPLAINED OF ANXIETY. DISCUSSED RELAXATION TECHNIQUES. WILL MEDICATE. PT ONLY RESPONDING IN [place], AAO X 2-3.
[2021-08-08] MEDS: LORazepam 2 MG/ML VIAL IVP PRN ×2 (09:44→23:57)
[2021-08-08] MEDS: ENOXAPARIN 40 MG/0.4 ML SYR SUBQ SCH (09:47)
--- NOTE | 2021-08-08 11:17 | NUR ---
TALKED WITH ANA(RELATIVE), UPDATED HER ABOUT PT'S CONDITION.
--- NOTE | 2021-08-08 11:55 | NUR ---
RECEIVED PATIENT FROM AD MCFADDEN FOR CONTINUITY OF CARE. PT IS STABLE.
[2021-08-08] MEDS ORDERED: CEPH-588 PO (12:03)
--- NOTE | 2021-08-08 14:21 | NUR ---
SPOKE TO [facility]. NO AVAILABLE TRANSPORT TO [facility] PT TODAY
--- NOTE | 2021-08-08 15:24 | NUR ---
IV WAS DISLODGED. WILL REINSERT NEW IV
[2021-08-08 16:00] VITALS: BP 144/52
--- NOTE | 2021-08-08 17:20 | NUR ---
NEW 22G IV INSERTED ON RADHA. INTACT AND PATENT
--- NOTE | 2021-08-08 19:45 | NUR ---
ENDORSED TO PATTERNMAKER WOOD NURSE FOR CONTINUITY OF CARE. PT IS STABLE.
--- NOTE | 2021-08-08 19:46 | NUR ---
RECEIVED BEDSITE REPORT FROM DAY SHIFT NURSE FOR CONTINUITY OF CARE.
--- NOTE | 2021-08-08 21:00 | NUR ---
PT AWAKE, ALERT AND CONFUSED INTERMITTENTLY. PT ALSO INTERMITTENTLY TAKES OFF O2 NASAL CANNULA AND PLAY WITH IV TUBING.
--- NOTE | 2021-08-08 22:30 | NUR ---
PT CONFUSED AND AGITATED, UNABLE TO UNDERSTAND INSTRUCTIONS.
--- NOTE | 2021-08-08 23:57 | NUR ---
PT UNABLE TO SLEEP AND AGITATED. LORAZEPAM PRN ADMINISTERED ORDER.
[2021-08-09] VITALS (8 sets, daily range): BP systolic 136–146; BP diastolic 55–61
--- NOTE | 2021-08-09 01:30 | NUR ---
PT ASLEEP SOUNDLY. SAFETY MEASURES IN PLACE. CONTINUE MONITORING.
[2021-08-09] MEDS: NACL 0.9% 1,000 ML IV SCH ×2 (05:30→17:20)
--- NOTE | 2021-08-09 09:57 | NUR ---
RECEIVED ENDORSEMENT FROM PM SHIFT NURSE W/ PATIENT REST IN BED, PIV PULLED OUT DURING PM SHIFT. NURSE OFFERED TO START ANOTHER BUT PATIENT REFUSED. WILL F/U
[2021-08-09] MEDS: ENOXAPARIN 40 MG/0.4 ML SYR SUBQ SCH (10:58)
--- NOTE | 2021-08-09 13:11 | NUR ---
GIVEN D/C REPORT TO KRISTINEAIR JIANG DANIEL FOR PATIENT, WHO IS STABLE AT THIS TIME AND REFUSE MOST OF HER MEDICATIONS. WAITING FOR GUEST SERVICE HOST TO FINALIZE COOLING PIPE INSPECTOR TIME.
--- NOTE | 2021-08-09 17:36 | NUR ---
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 SON, LAURA AND KUMAR JIANG INFORMED REGARDING PATIENT'S DISCHARGE STATUS.
--- NOTE | 2021-08-09 19:19 | NUR ---
ENDORSE PT TO PM SHIFT NURSE W/ PATIENT REST IN BED, PIV PULLED OUT AND PATIENT REFUSE TO START NEW IV. D/C ORDER IN PLACE
--- NOTE | 2021-08-09 19:20 | NUR ---
RECEIVED BEDSIDE REPORT FOR CONTINUITY OF PT CARE. PT ON BED, STABLE AND CONFUSED.
[2021-08-09] MEDS: traMADol 50 MG TAB PO PRN (23:01)
--- NOTE | 2021-08-09 23:01 | NUR ---
PT COMPLAINT OF MODERATE PAIN ON LEFT KNEE. PRN PAIN MEDICATION ADMINISTERED ORDERED.
[2021-08-10] VITALS: BP 126/57
--- NOTE | 2021-08-10 00:10 | NUR ---
PT REFUSED TO HAVE IV LINE INSERTED, TALKED TO PATIENT THE BENEFITS AND RISK, PT IS STILL REFUSED TO HAVE IV LINE.
--- NOTE | 2021-08-10 04:10 | NUR ---
PT AGREE TO HAVE IV LINE INSERTION. UNABLE TO HAVE BLOOD RETURN WITH SEVERAL ATTEMPS.
[2021-08-10] MEDS: NACL 0.9% 1,000 ML IV SCH ×2 (05:50→17:53)
[2021-08-10] MEDS: LORazepam 2 MG/ML VIAL IVP PRN (07:17)
[2021-08-10 08:00] VITALS: BP 121/68
--- NOTE | 2021-08-10 08:14 | NUR ---
RECEIVE ENDORSE FROM PM SHIFT NURSE THAT PATIENT STILL REFUSE PLACE IV ACCESS, OTHERWISE STABLE DIS BOTH BM & URINATION DURING NIGHT.
[2021-08-10] MEDS: ENOXAPARIN 40 MG/0.4 ML SYR SUBQ SCH (10:02)
[2021-08-10 11:36] VITALS: BP 121/68
--- NOTE | 2021-08-10 12:00 | NUR ---
RECEIVED CALL FROM [facility] THAT TRANSPORTATION IS SET UP AT 1830 BY [facility]. INFORM SON LAURA THAT PATIENT IS GOING BACK TO [facility] AT 1830. CALL [facility] AND GIVE REPORT TO JAIME
[2021-08-10] MEDS: traMADol 50 MG TAB PO PRN ×3 (13:23→19:28)
--- NOTE | 2021-08-10 15:17 | NUR ---
DC PLANNING PATIENT IS AN 85 YR OLD FEMALE WHO PRESENTED TO [facility]/ED ON 08/06/21 FOR KNEE PAIN RADIATING UP TO HIP. SW ATTEMPTED TO MEET WITH PATIENT AT BEDSIDE HOWEVER, WAS UNABLE TO WAKE PATIENT. SW OUTREACHED TO [facility] FOR THE PURPOSE OF DISCUSSING AND GATHERING COLLATERAL INFORMATION. REPORTED THAT CLIENT HAS BEEN WITH [facility] SINCE 05/15/21 FOR SKILLED CARE. REPORTED PATIENT WAS INITIALLY FULL ASSIST AND WAS DOING WELL AND WAS AMBULATORY WITH [facility] BEFORE RECENT HOSPITAL VISITS. CM REPORTED THAT PATIENT WAS RECEIVING OT AND PT. CM REPORTED THAT PATIENT WILL RETURN TO [facility]. REPORTS THAT PATIENT HAS ADEQUATE FAMILY SUPPORT AND SON LAURA IS LISTED [employer]. REPORTS THAT CHILDREN ARE BOTH ACTIVE IN PATIENTS CARE AND VISIT OFTEN. PATIENT IS SET FOR DC WITH EVENING TRANSPORT.
[2021-08-10 16:00] VITALS: BP 123/53
--- NOTE | 2021-08-10 17:50 | NUR ---
PATIENT'S DAUGHTER CALLED AND INFORMED THAT NO FAMILY WILL PRESENT WHILE PATIENT LEAVING [facility] FOR [facility].
--- NOTE | 2021-08-10 17:51 | NUR ---
RECEIVE LAB REPORT THAT PATIENT'S URINE IS POSITIVE FOR MDRO, PCP INFORMED.
--- NOTE | 2021-08-10 18:52 | NUR ---
STILL WAITING FOR [facility] TRANSPORTATION. PATIENT CHANGE, CONSENT SIGNED. WILL ENDORSE TO INCOME SHIFT NURSE FOR F/U
--- NOTE | 2021-08-10 19:22 | NUR ---
[facility]SP[facility] IS HERE TO ELECTRICAL HELPER PATIENT, WHO IS STABLE. FAMILY AWARE PATIENT IS TRANSFER BACK TO [facility].
== END 2021-08-10 19:22 ==
LOC: MED 11:27 → MTU 14:20 → MED 14:22 → MTU 08-10 11:05
PROVIDERS: ADMIT Hospitalist; ATTEND Hospitalist
DX: G89.18 Other acute postprocedural pain (principal); Z20.822 Contact with and (suspected) exposure to COVID-19; M25.562 Pain in left knee; M25.552 Pain in left hip; D64.9 Anemia, unspecified; N39.0 Urinary tract infection, site not specified; I10 Essential (primary) hypertension; F41.9 Anxiety disorder, unspecified; M19.90 Unspecified osteoarthritis, unspecified site; Z79.899 Other long term (current) drug therapy
CPT/HCPCS: 36415; 71045; 73502; 73562; 80053; 81001; 83735; 83880; 84484; 85025; 87081; 87086; 87426; 93005; 94760; 96361; 96365; 96366; 96372; 96375; 96376; 99285; G0378; J0696; J1650; J2060; J2270; J7060; Q0092